=== PATIENT | female | born 1985 | race African-American/Black ===

== ENCOUNTER 2018-01-17 11:13 | Emergency (ER) | payer OTHER ==
[2018-01-17] MEDS ORDERED: HYDROCODONE/ACETAMINOPHEN 5/325 MG TAB ONE (11:42)
== END 2018-01-17 13:27 | disposition home or self-care (01) ==
LOC: EDH 11:13
DX: S13.9XXA Sprain of joints and ligaments of unspecified parts of neck, initial encounter (principal); S63.501A Unspecified sprain of right wrist, initial encounter; S80.01XA Contusion of right knee, initial encounter; V49.49XA Driver injured in collision with other motor vehicles in traffic accident, initial encounter; Y93.89 Activity, other specified; Y92.89 Other specified places as the place of occurrence of the external cause; Y99.8 Other external cause status
CPT/HCPCS: 72040; 73110; 73562; 81025